=== PATIENT | male | born 1945 | race Two or more races ===

== ENCOUNTER → 2016-09-21 | Outpatient (CLI) | payer MEDICARE, BC, OTHER ==
--- NOTE | 2016-09-21 14:07 | REP ---
Scrotal ultrasound: The testes are normal size. Right testis measures 4.7 x 2.2 x 2.7 meters. Left testis measures 5.1 x 2.1 x 3.4 cm. There is a 4 mm right epididymal head cyst. The left epididymal head is unremarkable. The testicular parenchyma is homogeneous bilaterally. There are no testicular masses. There is vascular flow in both testes with the Doppler resistive index of the intraparenchymal arteries on the right measuring 0.78 on the left 0.54. There is a large the hydrocele and a trace of hydrocele on the right. Impression: Large left hydrocele. Trace hydrocele on the right. Otherwise, essentially negative scrotal ultrasound. Signed by Flavio Araiza MD 09/21/2016 01:58 P
== END ==
LOC: M RAD 12:49
PROVIDERS: ATTEND Physician Assistant
DX: N43.3 Hydrocele, unspecified (principal); N50.819 Testicular pain, unspecified

== ENCOUNTER → 2017-08-21 | Outpatient (REF) | payer MEDICARE, BC, OTHER ==
[2017-08-21 18:01] LABS: URIC ACID 8.8 MG/DL (3.5-7.2)
== END ==
LOC: M LAB REF 17:24
DX: M25.561 Pain in right knee (principal)
CPT/HCPCS: 84550

== ENCOUNTER → 2018-07-04 | Outpatient (REF) | payer MEDICARE, OTHER | LOC: M LAB REF 13:23 | PROVIDERS: ATTEND Nurse Practitioner Family | DX: L30.9 Dermatitis, unspecified (principal) ==

== ENCOUNTER → 2021-12-06 | Outpatient (CLI) | payer MEDICARE, BC, OTHER | LOC: M RAD 06:26 | PROVIDERS: ATTEND Internal Medicine | DX: K76.0 Fatty (change of) liver, not elsewhere classified (principal); K80.20 Calculus of gallbladder without cholecystitis without obstruction ==

== ENCOUNTER → 2023-05-24 | Outpatient (CLI) | payer MEDICARE, BC, OTHER | LOC: M RAD 06:49 | PROVIDERS: ATTEND Internal Medicine | DX: K80.40 Calculus of bile duct with cholecystitis, unspecified, without obstruction (principal) ==

== ENCOUNTER → 2023-07-18 | Outpatient (REF) | payer MEDICARE, BC, OTHER | LOC: M LAB REF 17:53 | PROVIDERS: ATTEND Internal Medicine | DX: K62.5 Hemorrhage of anus and rectum (principal) ==

== ENCOUNTER 2023-09-14 09:43 | Day surgery (SDC) | payer MEDICARE, BC, OTHER ==
[~2023-09-14] VITALS: Ht 180.3 cm; Wt 104.9 kg
[~2023-09-14 09:43] MED LIST: ATOR1TAB21 PO; AZEL1SPR3 NARES; BISO5TAB14 PO; ECOT81TA5 PO; LEVOTAB10 PO; MONT10TA97 PO; REFR0.5D8 OP; VALS1TAB67 PO; VITA100093 PO
[2023-09-14] MEDS: NS 1,000 ML IV ONE (11:02)
[2023-09-14] MEDS ORDERED: propofoL 200 MG/20 ML VIAL As Ordered ONE (11:55)
[2023-09-14] MEDS ORDERED: GLYCOPYRROLATE INJ 0.2 MG/ML 2 ML VIAL As Ordered ONE (12:01)
[2023-09-14 12:06] VITALS: TEMP 98.7
[2023-09-14 12:22] VITALS: BP 135/75; O2SAT 100
== END 2023-09-14 12:31 | disposition home or self-care (01) ==
LOC: M OPP 09:43
PROVIDERS: ATTEND Surgery
DX: Z12.11 Encounter for screening for malignant neoplasm of colon (principal); D72.10 Eosinophilia, unspecified; K63.3 Ulcer of intestine; K57.30 Diverticulosis of large intestine without perforation or abscess without bleeding; K60.0 Acute anal fissure; G47.30 Sleep apnea, unspecified; Z99.89 Dependence on other enabling machines and devices; Z87.891 Personal history of nicotine dependence; Z79.02 Long term (current) use of antithrombotics/antiplatelets; Z79.51 Long term (current) use of inhaled steroids; Z79.52 Long term (current) use of systemic steroids; Z79.620 Long term (current) use of immunosuppressive biologic; Z79.82 Long term (current) use of aspirin; Z79.899 Other long term (current) drug therapy; Z88.2 Allergy status to sulfonamides

== ENCOUNTER → 2023-12-12 | Outpatient (CLI) | payer MEDICARE, BC, OTHER ==
[~2023-12-12] MED LIST changes: +GASTROGRAFIN SOLUTION 30ML ONE; +ISOVUE-370 76% 100ML VIAL ONE
== END ==
LOC: M PLAIMG 08:53
PROVIDERS: ATTEND Internal Medicine
DX: R63.4 Abnormal weight loss (principal); R97.0 Elevated carcinoembryonic antigen [CEA]; R91.1 Solitary pulmonary nodule; J84.9 Interstitial pulmonary disease, unspecified; K76.89 Other specified diseases of liver; N28.1 Cyst of kidney, acquired; K65.4 Sclerosing mesenteritis; K40.90 Unilateral inguinal hernia, without obstruction or gangrene, not specified as recurrent
CPT/HCPCS: 74178; Q9963; Q9967

== ENCOUNTER → 2023-12-15 | Outpatient (CLI) | payer MEDICARE, BC, OTHER ==
[~2023-12-15] MED LIST changes: -GASTROGRAFIN SOLUTION 30ML ONE; -ISOVUE-370 76% 100ML VIAL ONE
[2023-12-20 01:01] LABS: ANCA SCREEN Negative (Negative)
[2023-12-25 17:51] LABS: ALPHA 2-MACROGLOBULINS,QN 210 mg/dL (106-279); ALT (SGPT) P5P 15 U/L (9-46); APOLIPOPROTEIN A-1 133 mg/dL (94-176); BILIRUBIN, TOTAL 0.7 mg/dL (0.2-1.2); FIBROSIS SCORE 0.34; FIBROSIS STAGE MINIMAL FIBROSIS (F0); GGT 10 U/L (3-70); HAPTOGLOBIN 180 mg/dL (43-212); NECROINFLAM ACT GRADE NO ACTIVITY (A0); NECROINFLAM ACT SCORE 0.05
== END ==
LOC: M LAB 11:08
PROVIDERS: ATTEND Surgery
DX: K52.9 Noninfective gastroenteritis and colitis, unspecified (principal); K76.0 Fatty (change of) liver, not elsewhere classified; R76.0 Raised antibody titer

== ENCOUNTER → 2023-12-16 | Outpatient (REF) | payer MEDICARE, BC, OTHER | LOC: M LAB REF 11:28 | PROVIDERS: ATTEND Internal Medicine Gastroenterology | DX: K52.9 Noninfective gastroenteritis and colitis, unspecified (principal); K63.3 Ulcer of intestine; K76.0 Fatty (change of) liver, not elsewhere classified; R97.0 Elevated carcinoembryonic antigen [CEA] ==

== ENCOUNTER → 2024-02-05 | Outpatient (CLI) | payer MEDICARE, BC, OTHER ==
[~2024-02-05] MED LIST changes: +ISOVUE-370 76% 100ML VIAL ONE
== END ==
LOC: M PLAIMG 12:46
PROVIDERS: ATTEND Internal Medicine
DX: R91.1 Solitary pulmonary nodule (principal); J47.9 Bronchiectasis, uncomplicated; J98.11 Atelectasis; J84.10 Pulmonary fibrosis, unspecified; I25.10 Atherosclerotic heart disease of native coronary artery without angina pectoris; I70.0 Atherosclerosis of aorta; K76.89 Other specified diseases of liver; K80.20 Calculus of gallbladder without cholecystitis without obstruction; J98.4 Other disorders of lung
CPT/HCPCS: 71260; Q9967